=== PATIENT | female | born 1990 | race Caucasian/White ===

== ENCOUNTER 2024-05-08 15:12 | Emergency (ER) | payer MEDICAID, SELFPAY ==
[2024-05-08 15:19] VITALS: BP 143/81; PULSE 83; RESP 16; TEMP 36.3; O2SAT 98; BMI 37.8
--- NOTE | 2024-05-08 15:54 | ED_ITS ---
HPI - General Adult General Date Seen: 05/08/24 Chief complaint: Headache/Migraine Stated complaint: Migraine, vomiting Time Seen by Provider: 05/08/24 15:13 Source: patient and RN notes reviewed Mode of arrival: ambulatory Limitations: no limitations History of Present Illness HPI narrative: Patient is a 33-year-old young woman, generally healthy, who says she gets migraines about once a month, she says no medication at home usually helps, she does sometimes try ibuprofen or Tylenol, does not have any dedicated migraine meds at home and has never talked to her doctor about her headaches. She says usually she just goes to bed and it will get better with sleep. Today's headache has not responded however. It is otherwise a typical headache for her, she gets pain on the top of her head and behind her eyes, associated with photophobia and nausea. She has also had vomiting today. No unusual features otherwise aside from the fact that it is worse than her usual headaches. Related Data Home Medications ?Medication ?Instructions ?Recorded ?Confirmed albuterol sulfate 90 mcg/actuation 1 - 2 puff inhalation Q4-6H PRN 05/08/24 05/08/24 aerosol inhaler (Ventolin HFA) fluoxetine 20 mg capsule PO 05/08/24 fluticasone 250 mcg-salmeterol 50 1 ea inhalation BID 05/08/24 05/08/24 mcg/dose blistr powdr for inhalation (Advair Diskus) montelukast 10 mg tablet 10 mg PO DAILY 05/08/24 05/08/24 Previous Rx's ?Medication ?Instructions ?Recorded sumatriptan succinate 50 mg tablet 50 mg PO Q2-4H PRN migraine 05/08/24 headache #6 tabs Allergies Allergy/AdvReac Type Severity Reaction Status Date / Time No Known Drug Allergies Allergy Verified 05/08/24 15:23 Review of Systems Status of ROS: Reports: 10 or more systems reviewed and unremarkable except as noted in History and below PFSH PFSH Social History Smoking Status: Never smoker Do you use any of these nicotine containing products: None How often do you have a drink containing alcohol: never How often do you have six or more drinks on one occasion: Never AUDIT-C Alcohol total score: 0 Non-prescribed substance use: denies use service: No Exam Narrative: Exam Narrative: Vital signs as noted above. In general, an alert, nontoxic woman. She is lying in a dark room with a pillow over her head. Head: Normocephalic, atraumatic. Eyes: Pupils are equal reactive. Extraocular movements are full. Conjunctivae are normal. ENT: Mucous membranes are moist. Neck: Supple without lymphadenopathy. No meningeal signs. Heart: Regular rate and rhythm. No murmur or rub. Lungs: Clear bilaterally. No increased work of breathing, crackles or wheezes. Abdomen: Soft and nontender. No organomegaly. Extremities: Well perfused. No edema. No calf tenderness. Pulses intact. Neurologic: Patient is alert and oriented to person and place. Speech is fluent. Face is symmetric. Moves all extremities equally. Affect: Normal. Skin: Warm and dry. Well perfused. Const: Vital Signs, click to edit/add: Vital Signs - 24 hr 05/08/24 15:19 Temperature 97.4 F L Pulse Rate [Pulse Oximeter] 83 Respiratory Rate 16 Blood Pressure [Ri ght Upper Arm] 143/81 H Pulse Oximetry 98 Oxygen Delivery Me thod Room Air Documenting provider has reviewed patient's vital signs: yes Course Course ED Course: Overall patient's presentation is consistent with her prior headaches which do sound likely to be migraine in nature. Will place an IV and give Benadryl, Toradol, Zofran, did discuss with her that it might be reasonable to try a Triptan for home use. No red flag features to this headache to suggest need for further workup at this time, I do not have reason to suspect intracranial hemorrhage or infection. Headache is relieved with the above medications, she is feeling significantly better and would like to go home. I did prescribe sumatriptan for her try, recommended that she discuss further with her primary doctor she does not find the Imitrex helpful as they are other options to consider. Return as needed for recurrent headache or other concerns. Vital Signs Vital signs: Initial Vital Signs Temperature 97.4 F L 05/08/24 15:19 Temperature Source Temporal Artery Scan 05/08/24 15:19 Pulse Rate 83 05/08/24 15:19 Pulse Rhythm Regular 05/08/24 15:19 Respiratory Rate 16 05/08/24 15:19 Blood Pressure 143/81 H 05/08/24 15:19 Blood Pressure Mean 101 05/08/24 15:19 Blood Pressure Position Sitting 05/08/24 15:19 Pulse Oximetry 98 05/08/24 15:19 Oxygen Delivery Method Room Air 05/08/24 15:19 Vital Signs Temperature 97.4 F L 05/08/24 15:19 Pulse Rate 83 05/08/24 15:19 Respiratory Rate 16 05/08/24 15:19 Blood Pressure 143/81 H 05/08/24 15:19 Pulse Oximetry 98 05/08/24 15:19 Oxygen Delivery Method Room Air 05/08/24 15:19 Temperature 97.4 F L 05/08/24 15:19 Pulse Rate 83 05/08/24 15:19 Respiratory Rate 16 05/08/24 15:19 Blood Pressure 143/81 H 05/08/24 15:19 Pulse Oximetry 98 05/08/24 15:19 Oxygen Delivery Method Room Air 05/08/24 15:19 Medications Administered Medications: Discontinued Medications Generic Name Dose Route Start Last Admin Trade Name Freq PRN Reason Stop Dose Admin Diphenhydramine HCl 25 mg 05/08/24 15:43 05/08/24 15:58 Diphenhydramine 50 Mg/Ml Inj IVP 05/08/24 15:44 25 mg ONCE ONE Administration Ketorolac Tromethamine 15 mg 05/08/24 15:43 05/08/24 15:58 Ketorolac 15 Mg/Ml Inj IVP 05/08/24 15:44 15 mg ONCE ONE Administration Ondansetron HCl 4 mg 05/08/24 15:43 05/08/24 15:58 Ondansetron 2 Mg/Ml Inj IVP 05/08/24 15:44 4 mg ONCE ONE Administration Discharge Plan Discharge Clinical Impression: Migraine Patient Disposition: Home, Self-Care Condition: Improved Instructions: Migraine Headache (ED) Additional Instructions: Return as needed for recurrent headache or other new symptoms. I am prescribing medication called sumatriptan for you to try for future headaches. You should take this as soon as you feel a migraine coming on. If you do not find this helpful, I would recommend discussing your migraines with your primary doctor as there are other options to help treat your headaches. Prescriptions: New sumatriptan succinate 50 mg tablet 50 mg PO Q2-4H PRN (Reason: migraine headache) Qty: 6 0RF Rx Instructions: do not exceed 4 doses per 24 hrs No Action fluticasone propion-salmeterol [Advair Diskus] 250-50 mcg/dose blister with device 1 ea inhalation BID montelukast 10 mg tablet 10 mg PO DAILY albuterol sulfate [Ventolin HFA] 90 mcg/actuation HFA aerosol inhaler 1 - 2 puff INHALATION Q4-6H PRN fluoxetine 20 mg capsule PO Follow Up/Referrals: Tahir Chavez, POLLY [Physician Teleradiologist] - Stand Alone Forms: [facility] Info Instructions
[2024-05-08] MEDS: KETOROLAC 15 MG/ML inj IVP (15:58)
[2024-05-08] MEDS: ONDANSETRON 2 MG/ML inj 4 MG IVP (15:58)
[2024-05-08] MEDS: diphenhydrAMINE 50 MG/ML inj 25 MG IVP (15:58)
== END 2024-05-08 17:12 | disposition home or self-care (01) ==
PROVIDERS: Emergency Provider Emergency Medicine
DX: G43.909 Migraine, unspecified, not intractable, without status migrainosus (principal)
CPT/HCPCS: 99283; 99284; J1200; J1885; J2405